=== PATIENT | female | born 1975 | race Caucasian/White ===

== ENCOUNTER 2019-07-09 16:57 | Outpatient (CLI) | payer BC, SELFPAY ==
--- NOTE | ~2019-07-09 | CT_ITS ---
EXAMINATION: CT abdomen pelvis wo con EXAM DATE: 07/09/2019 17:29 INDICATION: Left flank pain, hematuria. TECHNIQUE: Spiral CT of the abdomen and pelvis was performed without contrast. Axial, coronal and sag ittal images were reviewed. The dose-length product (DLP) for this examination was 1370.71 mGy-cm. The exposure was tailored according to patient size (auto mA exposure control), and iterative reconst ruction (ASIR) was used as additional dose reduction technique. Comparison is made to prior examinati on from 07/13/2007. FINDINGS: There is a 6 mm stone in the left ureterovesicular junction. There is mild left-sided obstr uctive nephropathy. No other genitourinary calcifications. The uterus is not identified and has like ly been surgically resected. The bladder is unremarkable. There is hepatic steatosis without suspic ious focal lesion identified. Spleen, adrenal glands, pancreas are unremarkable. Gallbladder is unre markable. No biliary obstruction. There is no retroperitoneal or pelvic lymphadenopathy. The appendix is normal. The stomach and small bowel are unremarkable. There is expected amount of c olonic stool. No free intraperitoneal gas. The heart is normal in size. There are no pericardial or pleural effusions. The lung bases are unremarkable. There are no osteoblastic or osteolytic les ions identified. IMPRESSION: 1. Left UVJ 6 mm stone, mild obstructive nephropathy. 2. Hepatic steatosis. Reviewed, dictated and finalized at location A.
--- NOTE | ~2019-07-09 | XR_ITS ---
EXAMINATION: XR abdomen/kub 1V EXAM DATE: 07/09/2019 17:29 INDICATION: Left flank pain. TECHNIQUE: Frontal projection(s) of the abdomen for interpretation. Comparison is made to prior exami nation from 07/13/2007. FINDINGS: Left UVJ 6 mm stone likely identified, indicated. Nonobstructive bowel gas pattern. Mild pj ny degenerative changes. There is no organomegaly. IMPRESSION: Probable identification left UPJ stone. Reviewed, dictated and finalized at location A.
[2019-07-09 17:15] LABS: Hematocrit 44.6 % (37.0-47.0); Hemoglobin 14.7 g/dL (12.0-15.0); Mean Corpuscular Hemoglobin 28.3 pg (26-34); Mean Corpuscular Volume 85.9 fl (80-100); Mean Platelet Volume 9.8 fl (7.4-10.4); Platelet Count Result 382 k/mm3 (150-375); Red Blood Count 5.19 M/mm3 (4.2-5.4); Red Cell Distribution Width 13.4 % (11.5-14.5); White Blood Count 18.6 K/mm3 (4.5-10.0)
[2019-07-09 17:27] LABS: Blood Urea Nitrogen 15 mg/dL (7-17); Calcium 10.1 mg/dL (8.4-10.2); Carbon Dioxide 24 mmol/L (22-30); Chloride 99 mmol/L (98-107); Estimated Glomerular Filt Rate > 60; Glucose 165 mg/dL (65-105); Potassium 4.2 mmol/L (3.4-5.0); Sodium 135 mmol/L (137-145)
== END 2019-07-09 16:58 | disposition home or self-care (01) ==
PROVIDERS: PCP Family Medicine; Visit Provider Physician Assistant Medical
DX: R10.9 Unspecified abdominal pain (principal); R31.9 Hematuria, unspecified; N20.1 Calculus of ureter; K76.0 Fatty (change of) liver, not elsewhere classified
CPT/HCPCS: 36415; 74018; 74176; 80048; 85027

== ENCOUNTER 2020-02-09 10:07 | Outpatient (CLI) | payer BC, SELFPAY ==
--- NOTE | ~2020-02-09 | MM_ITS ---
EXAMINATION: MM screening ryan BI w kahlil HISTORY: Screening TECHNIQUE: Craniocaudal and mediolateral oblique 3-D tomosynthesis images were obtained and synthetic 2-D images were generated. CAD analysis was submitted and interpreted. COMPARISON: 01/13/2019 BREAST PARENCHYMAL COMPOSITION: There are scattered areas of fibroglandular density. FINDINGS: There is no evidence of suspicious mass, calcification, or architectural distortion to sugg est malignancy in either breast. There has been no suspicious interval change. IMPRESSION: 1. No mammographic evidence of malignancy. 2. Recommend routine screening mammography in one year. BI-RADS Category 1: Negative Reviewed, dictated and finalized at location A. SALVAGER
== END 2020-02-09 10:08 | disposition home or self-care (01) ==
LOC: ANHIMG 10:11
PROVIDERS: PCP Family Medicine; Visit Provider Obstetrics & Gynecology
DX: Z12.31 Encounter for screening mammogram for malignant neoplasm of breast (principal)
CPT/HCPCS: 77063; 77067

== ENCOUNTER 2021-02-21 07:21 | Outpatient (CLI) | payer BC, SELFPAY ==
--- NOTE | ~2021-02-21 | MM_ITS ---
EXAMINATION: MM screening ryan BI w kahlil HISTORY: Screening mammogram TECHNIQUE: Craniocaudal and mediolateral oblique 3-D tomosynthesis images were obtained and synthetic 2-D images were generated. CAD analysis was submitted and interpreted. COMPARISON: 02/09/2020, 01/13/2019 BREAST PARENCHYMAL COMPOSITION: There are scattered areas of fibroglandular density. FINDINGS: RIGHT BREAST: There is a mass in the posterior third of the slightly lower breast 9 cm from the nipp le. LEFT BREAST: There is no evidence of suspicious mass, calcification, or architectural distortion to s uggest malignancy. There has been no significant interval change. IMPRESSION: 1. Right breast mass. 2. Additional mammographic views and possible breast ultrasound are recommended. BI-RADS Category 0: Incomplete: Needs additional imaging evaluation. Reviewed, dictated and finalized at location A. NT ASSOCIATE IMPRESSION: 1. Right breast mass. 2. Additional mammographic views and possible breast ultrasound are recommended . BI-RADS Category 0: Incomplete: Needs additional imaging evaluation.
== END 2021-02-21 07:22 | disposition home or self-care (01) ==
LOC: ANHIMG 07:25
PROVIDERS: PCP Family Medicine; Visit Provider Obstetrics & Gynecology
DX: Z12.31 Encounter for screening mammogram for malignant neoplasm of breast (principal); R92.8 Other abnormal and inconclusive findings on diagnostic imaging of breast
CPT/HCPCS: 77063; 77067

== ENCOUNTER 2021-03-16 13:32 | Outpatient (CLI) | payer BC, SELFPAY ==
--- NOTE | ~2021-03-16 | MMUS_ITS ---
EXAMINATION: MM diagnostic ryan RT w kahlil, US breast RT complete HISTORY: Follow-up right breast mass TECHNIQUE: Additional 3-D tomosynthesis images of the right breast were performed and synthetic 2-D i mages were generated. CAD analysis was submitted and interpreted. High resolution right breast ultras ound was performed. COMPARISON: Comparison to multiple prior studies sequentially, with oldest reviewed study dated 08/2018. BREAST PARENCHYMAL COMPOSITION: Breast composed of scattered areas of fibroglandular density. FINDINGS: MAMMOGRAPHIC FINDINGS: There is a 6 mm mass in the upper central right breast. There are benign right breast calcifications. No architectural distortion. ULTRASOUND: Complete bilateral US of all 4 quadrants of the breasts and retroareolar region was reviewed. At 1:00 , 3 cm from the nipple, there is a 6 mm cyst corresponding to the mass identified on mammogram. No espinal spicious masses to suggest malignancy. IMPRESSION: 1. No evidence for malignancy in the right breast. Benign findings. 2. Routine yearly screening mammogram and regular clinical breast examination are recommended. BI-RADS Category 2: Benign finding(s). Reviewed, dictated and finalized at location A. E CRUSHER OPERATOR IMPRESSION: 1. No evidence for malignancy in the right breast. Benign findings. 2. Routine yearly screening mammogram and regular clinical breast examination a re recommended. BI-RADS Category 2: Benign finding(s).
== END 2021-03-16 13:33 | disposition home or self-care (01) ==
LOC: ANHIMG 13:35
PROVIDERS: PCP Family Medicine; Visit Provider Obstetrics & Gynecology
DX: R92.8 Other abnormal and inconclusive findings on diagnostic imaging of breast (principal)
CPT/HCPCS: 76641; 77061; 77065; G0279

== ENCOUNTER → 2021-08-11 13:58 | Outpatient (REF) | payer BC, SELFPAY | LOC: ANHLAB 13:58 | PROVIDERS: PCP Family Medicine; Visit Provider Nurse Practitioner | DX: C44.719 Basal cell carcinoma of skin of left lower limb, including hip (principal); L57.0 Actinic keratosis | CPT/HCPCS: 88305 ==

== ENCOUNTER → 2021-09-21 08:08 | Outpatient (REF) | payer BC, SELFPAY | LOC: ANHLAB 08:08 | PROVIDERS: PCP Family Medicine; Visit Provider Surgery Plastic and Reconstructive Surgery | DX: C44.719 Basal cell carcinoma of skin of left lower limb, including hip (principal) | CPT/HCPCS: 88305; 88331; 88342 ==

== ENCOUNTER 2022-02-15 12:56 | Outpatient (NON) | payer BC, SELFPAY | END 2022-02-16 07:01 | disposition home or self-care (01) | PROVIDERS: PCP Family Medicine; Visit Provider Nurse Practitioner | DX: D22.5 Melanocytic nevi of trunk (principal) | CPT/HCPCS: 88305; 88342 ==

== ENCOUNTER 2023-02-23 13:40 | Outpatient (CLI) | payer BC, SELFPAY ==
--- NOTE | ~2023-02-23 | MM_ITS ---
EXAMINATION: MM screening [facility] BI w kahlil HISTORY: Screening mammogram TECHNIQUE: Craniocaudal and mediolateral oblique 3-D tomosynthesis images were obtained and synthetic 2-D images were generated. CAD analysis was submitted and interpreted. COMPARISON: 03/16/2021, 02/21/2021, 02/09/2020, 01/13/2019 BREAST PARENCHYMAL COMPOSITION: There are scattered areas of fibroglandular density. FINDINGS: No suspicious mass, calcification, or architectural distortion are identified in either lesly ast to suggest malignancy. There has been no suspicious interval change. IMPRESSION: 1. No mammographic evidence of malignancy. 2. Recommend routine screening mammography in one year. BI-RADS Category 1: Negative Reviewed, dictated and finalized at location A. [employer]
== END 2023-02-23 13:41 | disposition home or self-care (01) ==
LOC: ANHIMG 13:42
PROVIDERS: PCP Family Medicine; Visit Provider Obstetrics & Gynecology
DX: Z12.31 Encounter for screening mammogram for malignant neoplasm of breast (principal)
CPT/HCPCS: 77063; 77067

== ENCOUNTER 2023-03-31 17:17 | Outpatient (NON) | payer BC, SELFPAY | END 2023-03-31 17:18 | disposition home or self-care (01) | LOC: ANHLAB 17:19 | PROVIDERS: PCP Family Medicine; Visit Provider Nurse Practitioner | DX: L72.0 Epidermal cyst (principal) | CPT/HCPCS: 88304 ==

== ENCOUNTER 2023-09-20 02:00 | Day surgery (SDC) | payer OTHER, SELFPAY ==
[2023-09-06 10:25] VITALS: BMI 47.0
[2023-09-20 10:22] VITALS: BP 98/60; PULSE 86; RESP 18; TEMP 36.6; O2SAT 98
[2023-09-20] MEDS: LACTATED RINGERS 1,000 ML 150 ML IV CONT (10:30)
[2023-09-20 10:33] LABS: Glucose Point of Care 91 mg/dl (65-105)
--- NOTE | 2023-09-20 11:26 | PM.IMHP ---
H&P: HPI History of Present Illness Date/Time: 09/20/23 11:26 Chief Complaint: screening for colorectal cancer Narrative: this is a 48-year-old woman who presents for colonoscopy. She has never had a colonoscopy before. She denies any hematochezia or melena. She denies any first-degree family history of colon cancer. Review of Systems Review of Systems: All systems reviewed & are unremarkable except as noted in HPI and below Constitutional: Constitutional: Denies chills, Denies fever(s), Denies headache(s) and Denies weight loss Eyes: Eyes: Denies change in vision ENT: Denies dizziness, Denies headache(s), Denies neck mass and Denies throat swelling Cardiovascular: Cardiovascular: Denies chest pain, Denies lightheadedness and Denies dyspnea Respiratory: Respiratory: Denies cough, Denies dyspnea and Denies wheezing Gastrointestinal: Gastrointestinal: Denies abdominal pain, Denies change in bowel habits, Denies nausea and Denies vomiting Genitourinary: Genitourinary: Denies hematuria and Denies dysuria Musculoskeletal: Musculoskeletal: Reports as per HPI Integumentary/Breasts: Skin/Breast: Reports as per HPI Neurologic: Denies dizziness and Denies headache(s) Allergic/Immunologic: Allergic/Immunologic: Denies throat swelling and Denies wheezing PMF Past Medical History Medical History (Updated 07/25/23 @ 17:00 by Kaitlin Sin, [facility]) BMI 45.0-49.9, adult Hx of LEEP (loop electrosurgical excision procedure) of cervix complicating Morbid (severe) obesity due to excess calories Obesity, Class III, BMI 40-49.9 (morbid obesity) Renal calculi Skin cancer (melanoma) Surgical History Surgical History Hx of hysterectomy Hx of LASIK Family History Family History Grandparent Hypertension Carcinoma of colon Family history of heart disease in male family member before age 55 Diabetes mellitus Father Hypertension Heart disease History of quadruple bypass Mother Arthritis Sibling No problems noted. Other Family history of malignant neoplasm of testis Social History Social History (Updated 07/25/23 @ 16:30 by Yissel Figueroa) Smoking status: Former smoker Tobacco type: cigarettes Second hand tobacco smoke exposure: No Alcohol intake: current Drinks per week: 2 Alcohol use details: Socially Substance use: never Substance use type: does not use Do You Feel Safe in your Home?: Yes Lack of Transportation: No Lack of Food: Never True Current Housing: I Have Housing Concerned About Future Housing: No Difficulty Paying Gas/Electric Bills: No Difficulty Paying for Meds: No Currently Unemployed: No Education: High School Diploma/GED Difficulty w/ Childcare or Family Care: No Living arrangements: other Additional living arrangements comments: with sp Occupation/Education: occupation 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 [employer] Gender identity (if verbalized by the patient): Female Sexual Orientation (if Verbalized by the Patient): Straight or Heterosexual Spiritual care concerns: No Agree to blood products: Yes Meds Home Medications and Allergies Home Medications Medication Instructions Recorded Confirmed Type metformin 500 mg tablet 500 mg PO DAILY #90 tabs 09/07/22 09/06/23 Rx atorvastatin 10 mg tablet See Rx Instructions .Route 04/29/23 09/06/23 Rx .COMPLEX #90 tabs lisinopril 10 1 tablet PO DAILY #90 tabs 07/28/23 09/06/23 Rx mg-hydrochlorothiazide 12.5 mg tablet semaglutide 2 mg/dose (8 mg/3 mL) 2 mg (0.75 mL) subcut WEEKLY #9 mL 08/29/23 09/06/23 Rx subcutaneous pen injector (Ozempic) bupropion HCl 150 mg 24 hr tablet, 150 mg PO QAM #90 tabs 09/19/23 09/20/23 Rx extended release (Wellbutrin XL) duloxetine 60 mg capsule,delayed 60 mg PO DAILY #30 caps 09/20/23
[2023-09-20 12:01] VITALS: BP 124/79; PULSE 78; RESP 25; O2SAT 100
[2023-09-20 12:11] VITALS: BP 134/89; PULSE 75; RESP 20; O2SAT 100
[2023-09-20 12:21] VITALS: BP 134/89; PULSE 64; RESP 20; O2SAT 100
--- NOTE | 2023-09-23 12:59 | WPDANESEPPF ---
Anes - Initial Pre Proc Eval Procedure: Operation Date: 09/20/23 11:30 Proposed Procedures p Screening Colonoscopy - Roland Tamez DO Date/Time: 09/23/23 12:59 Surgeon: Roland Tamez DO Pre Op Diagnosis: neoplasm screening Patient Data Age: 48 Gender: F Height: 1.6 m Weight: 118.6 kg Last Vital Signs Temp 97.8 F 09/20/23 10:22 Pulse 64 09/20/23 12:21 Resp 20 09/20/23 12:21 BP 134/89 09/20/23 12:21 Pulse Ox 100 09/20/23 12:21 O2 Del Method Room Air 09/20/23 12:21 Allergies Allergy/AdvReac Type Severity Reaction Status Date / Time No Known Allergies Allergy Unknown Verified 09/20/23 10:21 Home Medications Medication Instructions Recorded Confirmed Type metformin 500 mg tablet 500 mg PO DAILY #90 tabs 09/07/22 09/06/23 Rx atorvastatin 10 mg tablet See Rx Instructions .Route 04/29/23 09/06/23 Rx .COMPLEX #90 tabs lisinopril 10 1 tablet PO DAILY #90 tabs 07/28/23 09/06/23 Rx mg-hydrochlorothiazide 12.5 mg tablet semaglutide 2 mg/dose (8 mg/3 mL) 2 mg (0.75 mL) subcut WEEKLY #9 mL 08/29/23 09/06/23 Rx subcutaneous pen injector (Ozempic) bupropion HCl 150 mg 24 hr tablet, 150 mg PO QAM #90 tabs 09/19/23 09/20/23 Rx extended release (Wellbutrin XL) duloxetine 60 mg capsule,delayed 60 mg PO DAILY #30 caps 09/20/23 09/20/23 Rx release (Cymbalta) Patient hx anesthesia problems: none Family hx anesthesia problems: none Results Review: All pre-operative results and documents have been reviewed as part of the pre-operative evaluation. [facility] Past Medical History Medical History (Updated 07/25/23 @ 17:00 by RAFAT Ya) BMI 45.0-49.9, adult Hx of LEEP (loop electrosurgical excision procedure) of cervix complicating Morbid (severe) obesity due to excess calories Obesity, Class III, BMI 40-49.9 (morbid obesity) Renal calculi Skin cancer (melanoma) Surgical History Surgical History Hx of hysterectomy Hx of LASIK Family History Family History Grandparent Hypertension Carcinoma of colon Family history of heart disease in male family member before age 55 Diabetes mellitus Father Hypertension Heart disease History of quadruple bypass Mother Arthritis Sibling No problems noted. Other Family history of malignant neoplasm of testis Social History Social History (Updated 07/25/23 @ 16:30 by Yissel Figueroa) Smoking status: Former smoker Tobacco type: cigarettes Second hand tobacco smoke exposure: No Alcohol intake: current Drinks per week: 2 Alcohol use details: Socially Substance use: never Substance use type: does not use Do You Feel Safe in your Home?: Yes Lack of Transportation: No Lack of Food: Never True Current Housing: I Have Housing Concerned About Future Housing: No Difficulty Paying Gas/Electric Bills: No Difficulty Paying for Meds: No Currently Unemployed: No Education: High School Diploma/GED Difficulty w/ Childcare or Family Care: No Living arrangements: other Additional living arrangements comments: with sp Occupation/Education: occupation 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[employer] Gender identity (if verbalized by the patient): Female Sexual Orientation (if Verbalized by the Patient): Straight or Heterosexual Spiritual care concerns: No Agree to blood products: Yes Anes - Eval Final PreProcedure Day of Procedure 09/23/23 12:59 Patient weight: morbidly obese Heart: regular rate and rhythm Lungs: clear to auscultation Airway: Mallampati scale class III Neurological: alert and oriented Last oral intake: >/= 8 hours ASA classification: III Emergent: no Anesthetic plan: proceed Anesthesia type and monitoring: general GIVS and standard monitoring Results Review: All pre-operative results and d
== END 2023-09-20 12:36 | disposition home or self-care (01) ==
PROVIDERS: PCP Family Medicine; Visit Provider Surgery
PROC: 0DJD8ZZ Inspection of Lower Intestinal Tract, Via Natural or Artificial Opening Endoscopic (ICD-10-PCS; CPT 45378; principal; 2023-09-20 11:30)
DX: Z12.11 Encounter for screening for malignant neoplasm of colon (principal); E66.01 Morbid (severe) obesity due to excess calories; Z68.42 Body mass index [BMI] 45.0-49.9, adult; Z87.891 Personal history of nicotine dependence; Z79.85 Long-term (current) use of injectable non-insulin antidiabetic drugs; Z79.84 Long term (current) use of oral hypoglycemic drugs
CPT/HCPCS: 45378; 82948; J2704; J7120